=== PATIENT | male | born 1955 | race Caucasian/White ===

== ENCOUNTER 2018-06-24 08:50 | Outpatient (CLI) | payer OTHER ==
[2018-06-24 10:51] LABS: eGFR (African) > 60; eGFR (Non-African) > 60
== END 2018-06-24 08:52 ==
LOC: LAB 08:50
PROVIDERS: ATTEND Physician Assistant
DX: Z00.00 Encounter for general adult medical examination without abnormal findings (principal); Z13.6 Encounter for screening for cardiovascular disorders
CPT/HCPCS: 36415; 80053; 80061

== ENCOUNTER 2019-06-23 16:11 | Outpatient (CLI) | payer OTHER ==
[2019-06-23 17:14] LABS: eGFR (Non-African) > 60
[2019-06-23 17:15] LABS: HDL 47 mg/dL (>40)
== END 2019-06-23 16:13 ==
LOC: LABRHC 16:11
PROVIDERS: ATTEND Family Medicine
DX: N18.9 Chronic kidney disease, unspecified (principal)
CPT/HCPCS: 80053; 80061; 84403; 84439; 84443; 84481